=== PATIENT | female | born 1965 | race Caucasian/White ===

== ENCOUNTER 2024-11-18 11:08 | Inpatient (IN) ==
--- NOTE | 2024-10-25 13:24 | PAT Medication Instructions ---
Medication Instructions Date of Service October 25, 2024 Home Medications AJQ-kkndfwyxrbwjl-xnlrdhhl-potassium 520 mg-260 mg-32.5 mg oral packet 1 packet PO DAILY PRN Headache gabapentin 800 mg tablet 800 mg PO TID losartan 50 mg tablet 50 mg PO QAM tirzepatide (weight loss) 12.5 mg/0.5 mL subcutaneous pen injector (Zepbound) 12.5 mg subcut WK ASK your surgeon for instructions CNP-njodeacxxeuzd-hojmbkfg-potassium 520 mg-260 mg-32.5 mg oral packet 1 packet PO DAILY PRN Headache STOP 7 days prior to surgery tirzepatide (weight loss) 12.5 mg/0.5 mL subcutaneous pen injector (Zepbound) 12.5 mg subcut WK DO NOT take the morning of surgery losartan 50 mg tablet 50 mg PO QAM Take morning of surgery With a small sip of water, OTHERWISE NOTHING TO EAT OR DRINK AFTER MIDNIGHT: gabapentin 800 mg tablet 800 mg PO TID Other Notes If you have any questions please call us at [phone] or [phone] or [phone] or [phone]
--- NOTE | 2024-11-07 11:13 | Anesthesiology Consultation ---
Date of Service November 07, 2024 Assessment & Plan (1) Encounter for pre-operative examination: - Infectious disease screening: Per assessment on 11/07/24- Patient's had influenza 2/5 (resolved 10/24). Patient development or current infectious disease symptoms. Patient advised to contact surgeon/PAT if development in infectious- related symptoms prior to surgery. - Zepbound instructions: Patient informed by PAT to stop 7 days prior to surgery - voiced understanding. DOS 11/18. Advised last dose to be 11/06/24. - Patient concern: Significant post-op nausea with previous procedures/anesthesia. Chart flagged. - Patient acceptable risk for surgery pending surgeon-ordered PCP preop evaluation (Dr. Hanny Arce/[facility], appt 11/10). Chart Review Chart Review: Patient seen in Pre Admission Testing Teaching & Discussion Pre-Anesthesia Teaching/Discussion Notes: Instructed NPO after midnight before surgery,except medications with 15 cc of water. Medication instructions provided according to the PAT guidelines. History Surgery Operation Date: 11/18/24 11:55 Proposed Procedures p L4-L5 Decompression and Fusion, Spinal Cord Monitoring - Sahil Rawls, Height/Weight Height: 5 ft 5 in Weight: 101.2 kg Allergies Allergy/AdvReac Type Severity Reaction Status Date / Time azithromycin Allergy Severe Tachycardia, Verified 11/07/24 11:44 [From Zithromax Z-Roderick] heart racing naproxen [From Aleve] Allergy Severe Anaphylaxis Verified 10/25/24 10:08 NSAIDS (Non-Steroidal Allergy Severe Anaphylaxis Verified 11/07/24 11:44 Anti-Inflamma sumatriptan Allergy Severe Hives Verified 10/25/24 10:08 tramadol Allergy Severe Hives Verified 10/25/24 10:08 nickel Allergy Mild Rash Verified 10/25/24 10:26 Penicillins Allergy Mild Rash Verified 10/25/24 10:08 sulfamethoxazole AdvReac Mild Thrush Verified 10/25/24 10:08 [From Bactrim] trimethoprim [From Bactrim] AdvReac Mild Thrush Verified 10/25/24 10:08 Medications Home Medications Medication Instructions Recorded Confirmed Last Taken NDE-ywohzkyhxdsvq-jqofgmur-potassium 1 packet PO DAILY PRN Headache 10/25/24 10/25/24 Unknown 520 mg-260 mg-32.5 mg oral packet gabapentin 800 mg tablet 800 mg PO TID 10/25/24 10/25/24 Unknown losartan 50 mg tablet 50 mg PO QAM 10/25/24 10/25/24 Unknown tirzepatide (weight loss) 12.5 12.5 mg subcut WK 10/25/24 10/25/24 Unknown mg/0.5 mL subcutaneous pen injector (Zepbound) Past Medical History Medical History Acid reflux Arthritis Borderline hypertension Cardiac murmur "Since , has never been an issue" No murmur noted at PAT visit 11/07/24 Hx of blood clots (2017) LLE superficial clot- was on aspirin, no clots since Hx of migraines Obesity Reason for weekly Zepbound per patient Exercise / Class Metabolic Activity III < 4 Walking/Shop/Light housework Past Surgical History Surgical History History of esophagogastroduodenoscopy (EGD) Hx of bilateral cataract extraction (2023) Hx of colonoscopy Hx of gastric bypass (2004) Hx of knee surgery meniscus repair, cannot recall side Past Anesthesia History No Hx of Anesthesia Complications and No Family Hx of Anesthesia Complications History of PONV History of PONV (Nausea) and Hx of Motion Sickness Social History Smoking Status: Never smoker Do You Dip or Chew Tobacco: No Hx Alcohol Use: Yes alcohol intake frequency: holidays/special occasions only Hx Substance Use: No Review of Systems Patient denies chest pain, shortness of breath, fever, chills, cough, wheezing, palpitations. Physical Exam Vital Signs BP 121/66 P 88 TEMP 98.4 SP02 99%RA RESP 16 Physical Full cervical extension range of motion. Full TMJ range of motion. TMD 3 finger breaths Mallampati Score III Lungs: clear throughout to auscultation Cardiac: regular rate and rhythm, no murmurs noted Spine: normal Carotid arteries: negative bruit Extremities: no LE edema Lab Results Anesthesia Preop Results Results Anesthesia Widget: WBC 4.09 K/ul (4.8-10.8) L 11/07/24 Hgb 12.5 g/dl (12.0-16.0) 11/07/24 Hct 39.4 % (37.0-47.0) 11/07/24 Plt 269 K/uL (130-400) 11/07/24 Na 142 mmol/L (136-145) 11/07/24 K 3.9 mmol/L (3.5-5.1) 11/07/24 Cl 107 mmol/L (98-107) 11/07/24 CO2 30 mmol/L (21-32) 11/07/24 BUN 10 mg/dl (6-23) 11/07/24 Creat 0.70 mg/dl (0.6-1.2) 11/07/24 Glucose Level 84 mg/dl (70-99(Fasting)) 11/07/24 PT 11.1 Seconds (9.0-12.0) 11/07/24 PTT 26 Seconds (21-31) 11/07/24 INR 1.0 (0.9-1.1) 11/07/24 Urine Color Yellow 11/07/24 Urine Appearance Clear (Clear) 11/07/24 Urine pH 5.5 (4.5-7.5) 11/07/24 Urine Specific [place] 1.010 (1.000-1.030) 11/07/24 Urine Protein Negative (Negative) 11/07/24 Urine Glucose (UA) Negative (Negative) 11/07/24 Urine Ketones Negative (Negative) 11/07/24 Urine Blood Negative (Negative) 11/07/24 Urine Nitrite Negative (Negative) 11/07/24 Urine Bilirubin Negative (Negative) 11/07/24 Urine Urobilinogen Negative (Negative) 11/07/24 Urine Leukocyte Esterase Negative (Negative) 11/07/24 Blood Type A Positive 11/07/24 Antibody Screen NEGATIVE 11/07/24 Testing Electrocardiogram Date: 11/07/24 NSR with sinus arrhythmia at 84bpm. "Normal ECG" Chest X-Ray Date: 11/07/24 FINDINGS: Heart size and pulmonary vasculature are normal. No effusion or consolidation. IMPRESSION: No acute findings.
[2024-11-18] MEDS: LR 15ML/HR IV SCH (11:03)
[2024-11-18] MEDS: VANCOMYCIN HCL 1,500 MG in SODIUM CHLORIDE 0.9% 500 ML IV SCH (11:04)
[2024-11-18] MEDS: LR 60ML/HR IV SCH (11:04)
[2024-11-18] MEDS: GABAPENTIN 600 MG DOSE PO SCH (11:05)
[2024-11-18] MEDS: ACETAMINOPHEN 500 MG TAB PO SCH (11:05)
[2024-11-18] MEDS ORDERED: ATROPINE SULFATE 0.1 MG/ML 10ML SYR IV PRN (11:23)
[2024-11-18] MEDS ORDERED: ePHEDrine sulfate 50 MG/ML AMP IV PRN (11:23)
[2024-11-18] MEDS ORDERED: ONDANSETRON INJ 2 MG/ML 2 ML VIAL IV PRN (11:23)
[2024-11-18] MEDS ORDERED: fentaNYL citrate PF 100 MCG/2 ML VIAL ONE (11:34)
[2024-11-18] MEDS ORDERED: MIDAZOLAM HCL 1 MG/ML 2ML VIAL ONE (11:34)
[2024-11-18] MEDS ORDERED: LIDOCAINE 2% 2 ML VIAL/AMP(20MG/ML) INFIL ONE (11:35)
[2024-11-18] MEDS: SCOPOLAMINE 1 MG/72 HR TDSY PATCH TD ONE ×2 (11:35→16:34)
[2024-11-18] MEDS ORDERED: PROPOFOL IV EMULSION 10 MG/ML 20 ML VIAL IV ONE (11:36)
[2024-11-18] MEDS ORDERED: ROCURONIUM BROMIDE 10 MG/ML 5 ML VIAL IV ONE ×2 (11:36→14:03)
--- NOTE | 2024-11-18 11:48 | History & Physical Bridge Note ---
Date of Service November 18, 2024 History & Physical Bridge Note I have examined the patient, reviewed the History & Physical and in the interval since the performance of the History & Physical I have noted the following changes of clinical significance: no changes noted
--- NOTE | 2024-11-18 11:49 | History & Physical Report ---
Date of Service November 18, 2024 Assessment & Plan (1) Spondylolisthesis, lumbar region: Plan: Decompression and fusion L4-L5 History of Present Illness Chief Complaint: Back and bilateral leg pain Primary Care Provider: Judi Arce MD This is a 58-year-old female who presents for chronic persistent back and bilateral leg pain after failing course of nonoperative care is here for surgical invention. Allergies Allergy/AdvReac Type Severity Reaction Status Date / Time azithromycin Allergy Severe Tachycardia, Verified 11/18/24 11:10 [From Zithromax Z-Roderick] heart racing naproxen [From Aleve] Allergy Severe Anaphylaxis Verified 11/18/24 11:10 NSAIDS (Non-Steroidal Allergy Severe Anaphylaxis Verified 11/18/24 11:10 Anti-Inflamma sumatriptan Allergy Severe Hives Verified 11/18/24 11:10 tramadol Allergy Severe Hives Verified 11/18/24 11:10 nickel Allergy Mild Rash Verified 11/18/24 11:10 Penicillins Allergy Mild Rash Verified 11/18/24 11:10 sulfamethoxazole AdvReac Mild Thrush Verified 11/18/24 11:10 [From Bactrim] trimethoprim [From Bactrim] AdvReac Mild Thrush Verified 11/18/24 11:10 Home Medications Medication Instructions Recorded Confirmed Type KXF-bbqhxzqmhufin-nmzsjqhu-potassium 1 packet PO DAILY PRN Headache 10/25/24 10/25/24 History 520 mg-260 mg-32.5 mg oral packet gabapentin 800 mg tablet 800 mg PO TID 10/25/24 11/18/24 History losartan 50 mg tablet 50 mg PO QAM 10/25/24 11/18/24 History tirzepatide (weight loss) 12.5 12.5 mg subcut WK 10/25/24 11/18/24 History mg/0.5 mL subcutaneous pen injector (Zepbound) acetaminophen 500 mg capsule 1,000 mg PO Q6H PRN Pain 11/18/24 11/18/24 History Past Med/Surg History Problem List (Updated 11/18/24 @ 11:48 by Sahil Rawls DO) Spondylolisthesis, lumbar region Encounter for pre-operative examination Medical History Acid reflux Arthritis Borderline hypertension Cardiac murmur "Since , has never been an issue" No murmur noted at PAT visit 11/07/24 Hx of blood clots (2017) LLE superficial clot- was on aspirin, no clots since Hx of migraines Obesity Reason for weekly Zepbound per patient Surgical History History of esophagogastroduodenoscopy (EGD) Hx of bilateral cataract extraction (2023) Hx of colonoscopy Hx of gastric bypass (2004) Hx of knee surgery meniscus repair, cannot recall side Social History Smoking Status: Never smoker Second Hand Exposure: No; Do You Dip or Chew Tobacco: No; Tobacco Cessation Education Requested by Patient: No Hx Alcohol Use: Yes Hx Substance Use: No Preferred Language: Omani Communication Ability: Effective Marketing Development Specialist Required: No Beliefs That Will Affect Care: None Current Living Situation: Spouse Other Information That Helps Us Care for You: No Feels Safe at Home: Yes Safety Concerns: Feels Safe At This Time Assistive Devices: Glasses Physical Exam Physical Exam: Patient is alert and oriented Heart regular rhythm Lungs clear Results & Data Results & Data Vital Signs (Past 12 Hours) Vital Signs Temp Pulse Resp BP Pulse Ox O2 Del Method 11/18/24 11:14 36.6 C 75 18 146/94 H 99 Room Air
[2024-11-18] MEDS ORDERED: HYDROmorphone INJ 2 MG/ML SYR/VIAL ONE (12:40)
[2024-11-18] MEDS ORDERED: KETAMINE HCL 10MG/ML SYR ONE (12:40)
[2024-11-18] MEDS ORDERED: ONDANSETRON INJ 2 MG/ML 2 ML VIAL ONE (12:40)
[2024-11-18] MEDS ORDERED: DEXAMETHASONE SOD INJ 4 MG/ML VIAL ONE (12:40)
[2024-11-18] MEDS: BUPIVACAINE/EPINEPHRINE 0.25% 1:200,000 30 ML VIAL ONE (12:48)
[2024-11-18] MEDS: ceFAZolin 330 MG/ML 1 GM VIAL ONE (12:48)
[2024-11-18] MEDS ORDERED: METOCLOPRAMIDE HCL INJ 5 MG/ML 2 ML VIAL ONE ×2 (12:59→14:03)
[2024-11-18] MEDS ORDERED: PHENYLEPHRINE 100MCG/ML 5ML SYR ONE (13:00)
[2024-11-18] MEDS ORDERED: SUGAMMADEX SODIUM 200 MG/2 ML VIAL IV ONE (14:03)
[2024-11-18] MEDS: FLOSEAL HEMOSTATIC MATRIX 10ML TOP ONE (14:07)
--- NOTE | 2024-11-18 14:17 | Operative Report ---
Post Operative Report Pre & Post Diagnosis Operation Date: 11/18/24 11:55 Pre-Op Diagnosis: #1 lumbar spondylolisthesis with radiculopathy #2 lumbar spondylosis with radiculopathy #3 lumbar spinal stenosis Post-Op Diagnosis: Same I identified the patient and participated in the time-out.: Yes Procedure Operation Date: 11/18/24 11:55 Actual Procedures #1 lumbar decompression with bilateral medial facetectomies and foraminotomies L3-L4 L4-5 per #2 posterior spinal fusion L4-5 per #3 placed posterior instrumentation L4-5 #4 interbody fusion L4-L5. #5 placement Spira 15 x 26 mm x 2 at L4-5. #6 placement locally harvested morselized autograft the posterior gutters. #7 placement fuse collagen sponge combined with Koros in the posterior lateral gutters and os design interbody space. #8 placement of versa wrap of the exposed dura. Surgeon Sahil Rawls, DO Refuse Collector Supervisor Ryan Santos Estimated Blood Loss 200 Findings See Below The patient is 5 foot 4 weighing over 99 kg with a BMI in excess of 37. The patient's body habitus did contribute to significant technical difficulty with positioning exposure and the procedure itself. This had at least 50% increased operative time. Specimens None Indications This is a 58-year-old female presents publish diagnosis after failing course of nonoperative care is here for surgical invention. Description of Procedure Patient was met with identified informed consent obtained. Patient was then taken to the operative suite underwent patient placed in a prone position the [place] table top Wild frame. All bony promises well-padded eyes inspected to ensure no external pressure placed upon the. This point the lumbar spine was prepped and draped no sterile fashion. Sharp dissection with assistance of Bovie cautery performed down to and exposing the lamina and transverse processes of L4-L5 bilaterally. From caudal to cephalad fashion complete laminectomy of L4 was performed including bilateral medial facetectomies and foraminotomies addressing severe neural compression. This is followed by partial laminectomy of L3 with bilateral medial facetectomies to address all spinal stenosis. Pedicle screws and placement for L5 bilaterally with assistance of fluoroscopy in the process pasquale placed. By way of transforaminal approach on the right discectomy of L4-5 was performed endplates guarded to subcortical big bone and a 15 x 26 mm Spira cage filled with os design bone graft tapped in position. Then proceeded to the left transforaminal region at L4-5. Again discectomy performed. Endplates guided to subcortical and bone and a second 15 x 26 mm Spira cage filled with os design tapped in position. The rods then compressed locked in final position bilaterally. The transverse processes of L4-5 burred to subcortical bleeding bone. Infuse collagen sponge, with Koros and local autograft placed in the posterior lateral gutters. Versa wrap placed over the exposed dura. 15 round ODALIS drain inserted. The incision was then closed with 1 Vicryl the fascia 2-0 Vicryl subcutaneously and 4 Monocryl for final skin closure. Steri-Strips and sterile dressing placed. Patient waken taken to PACU in stable condition. Please note spinal cord monitoring was utilized at the procedure no changes noted. Ryan Brothers was present at the entire procedure and all the patient positioning complex portion of the surgery and final skin closure. I attest to the content of the Intraoperative Record and any orders documented therein. Any exceptions are noted below.
--- NOTE | 2024-11-18 14:28 | Fluoroscopy Report ---
FL lumbar spine 2-3V CLINICAL HISTORY: L4-L5 DECOMPRESSION AND FUSION COMPARISON STUDY: None FLUOROSCOPY TIME: 22 seconds FLUOROSCOPY IMAGES: 3 EXPOSURE DOSE: 21 mGy FINDINGS: Fluoroscopy was provided for L4-5 laminectomy and instrumented fusion. IMPRESSION: Intraoperative fluoroscopy. ACT 112: Negative or not required by law. Electronically signed by: Idris Mcknight M.D. 11/18/2024 2:26 PM
[2024-11-18] MEDS: fentaNYL citrate PF 100 MCG/2 ML VIAL IV PRN (14:41)
[2024-11-18] MEDS: HYDROmorphone INJ 1 MG/ML SYRINGE IV PRN (15:01)
--- NOTE | 2024-11-18 15:08 | Anesthesiology Progress Note ---
Date of Service November 18, 2024 Anesthesia Post Procedure Vital Signs Vital Signs: Temp Pulse Resp BP Pulse Ox O2 Del Method O2 Flow Rate 11/18/24 15:00 90 19 132/68 99 Nasal Cannula 2 11/18/24 14:50 77 16 116/61 96 Nasal Cannula 2 11/18/24 14:40 85 12 131/72 100 Nasal Cannula 2 11/18/24 14:30 36.1 C L 94 H 16 158/86 H 100 Oxymask 4 11/18/24 11:14 36.6 C 75 18 146/94 H 99 Room Air Pain Intensity Lower Back: Pain Intensity: 4 Transfer of Care Handoff Completed per policy Notes Mental Status: alert / awake / arousable and participated in evaluation Patient Amnestic to Procedure: Yes Nausea / Vomiting: adequately controlled Pain: adequately controlled Airway Patency, RR, SpO2: stable & adequate BP & HR: stable & adequate Hydration State: stable & adequate Anesthetic Complications: no major complications apparent and Pt Satisfied with anesthetic care
[2024-11-18] MEDS ORDERED: hydrOXYzine HCl 25 MG TAB PO PRN (16:24)
[2024-11-18] MEDS ORDERED: NALOXONE HCL 0.4 MG/1 ML VIAL/CARP IV PRN (16:24)
[2024-11-18] MEDS ORDERED: SOD PHOSPHATE/SOD BIPHOSPHATE ENEMA 132 ML BTL PR PRN (16:24)
[2024-11-18] MEDS ORDERED: LORazepam 0.5 MG TAB PO PRN (16:24)
[2024-11-18] MEDS ORDERED: FAMOTIDINE 20 MG TAB PO PRN (16:24)
[2024-11-18] MEDS ORDERED: MAGNESIUM HYDROXIDE SUSP 30 ML UDC PO PRN (16:24)
[2024-11-18] MEDS ORDERED: HYDROmorphone INJ 1 MG/ML SYRINGE IV PRN (16:24)
[2024-11-18] MEDS ORDERED: DO NOT ADMINISTER FLU VACCINE PRN (16:24)
[2024-11-18] MEDS ORDERED: DO NOT ADMINISTER PNEUMOCOCCAL VACCINE PRN (16:24)
[2024-11-18] MEDS ORDERED: ALUMINUM/MAGNESIUM SUSP 30 ML UDC PO PRN (16:24)
[2024-11-18] MEDS ORDERED: diphenhydrAMINE Capsule 25 MG CAP PO PRN (16:24)
[2024-11-18] MEDS ORDERED: [UNRECOGNIZED DRUG - OTHER] PO PRN (16:24)
[2024-11-18] MEDS ORDERED: LORazepam 2 MG/1 ML VIAL IV PRN (16:24)
[2024-11-18] MEDS ORDERED: METOCLOPRAMIDE HCL INJ 5 MG/ML 2 ML VIAL IV PRN (16:24)
[2024-11-18] MEDS ORDERED: bisacodyL 10 MG SUPP PR PRN (16:24)
[2024-11-18] MEDS ORDERED: HYDROmorphone INJ 0.5 MG/0.5 ML SYR IV PRN (16:24)
[2024-11-18] MEDS ORDERED: PROMETHAZINE 12.5 MG/50.5 ML BAG IV PRN (16:24)
--- NOTE | 2024-11-18 17:15 | Hospitalist Consultation ---
Date of Consultation November 18, 2024 Assessment & Plan (1) Spondylolisthesis, lumbar region: POD#0 L4-L5 decompression and fusion by Dr. Rawls Activity and wound care orders as per ortho Pain control with bowel regimen PT/OT Monitor H/H for acute blood loss anemia and transfuse blood products PRN EBL 200cc (2) HTN (hypertension): BPs currently well controlled in the 110s-120s Will hold VICE INVESTIGATOR losartan for now and reassess in the AM based on BP and labs DVT PROPHYLAXIS TEDs/SCDs as per spine Ortho Patient seen in collaboration with Dr. Dudley. Thank you for this consultation. We will follow the patient with you during their hospital stay. You can reach a [facility] via the [facility] role in [place] [facility]. Supervising Physician Co-Signing Physician Notes Attending Addendum: Case reviewed with the advanced practitioner. I have personally performed a history and physical examination on the patient. I have reviewed the advanced practitioner's documentation on the date of service referenced in note, and I agree with, and take responsibility for the plan of care. please refer to her notes for full details patient seen and examined, records reviewed by myself as well all labs, imaging noted and reviewed ASSESSMENT AND PLAN diagnoses and plan of care as per advanced practitioner's notes I spent a total of 20 minutes coordinating, documenting, and providing care for this patient, excluding time spent in the performance of separately billed services or time spent by another provider/QHP. Ari Dudley MD History of Present Illness Reason for Consultation: Postop medical management Requesting Physician: Dr. Rawls Attending Physician: Sahil Rawls, History of Present Illness 58-year-old female with PMH HTN, obesity, and other problems listed below who is s/p decompression and fusion L4-L5 today by Dr. Rawls. Postoperatively, the patient is doing well. She reports her pain is well-controlled. She denies any numbness, tingling, weakness to lower extremities. Reporting mild nausea that is improving. Denies abdominal pain. No chest pain or shortness of breath. Patient has voided since surgery. Allergies Allergy/AdvReac Type Severity Reaction Status Date / Time azithromycin Allergy Severe Tachycardia, Verified 11/18/24 11:10 [From Zithromax Z-Roderick] heart racing naproxen [From Aleve] Allergy Severe Anaphylaxis Verified 11/18/24 11:10 NSAIDS (Non-Steroidal Allergy Severe Anaphylaxis Verified 11/18/24 11:10 Anti-Inflamma sumatriptan Allergy Severe Hives Verified 11/18/24 11:10 tramadol Allergy Severe Hives Verified 11/18/24 11:10 nickel Allergy Mild Rash Verified 11/18/24 11:10 Penicillins Allergy Mild Rash Verified 11/18/24 11:10 sulfamethoxazole AdvReac Mild Thrush Verified 11/18/24 11:10 [From Bactrim] trimethoprim [From Bactrim] AdvReac Mild Thrush Verified 11/18/24 11:10 Home Medications Medication Instructions Recorded Confirmed Type CXC-endwstzrtftqn-luuawzcc-potassium 1 packet PO DAILY PRN Headache 10/25/24 10/25/24 History 520 mg-260 mg-32.5 mg oral packet gabapentin 800 mg tablet 800 mg PO TID 10/25/24 11/18/24 History losartan 50 mg tablet 50 mg PO QAM 10/25/24 11/18/24 History tirzepatide (weight loss) 12.5 12.5 mg subcut WK 10/25/24 11/18/24 History mg/0.5 mL subcutaneous pen injector (Zepbound) acetaminophen 500 mg capsule 1,000 mg PO Q6H PRN Pain 11/18/24 11/18/24 History Patient History Medical History (Updated 11/18/24 @ 17:12 by KYLIE Chavez) HTN (hypertension) Obesity Reason for weekly Zepbound per patient Hx of blood clots (2017) LLE superficial clot- was on aspirin, no clots since Cardiac murmur "Since , has never been an issue" No murmur noted at PAT visit 11/07/24 Arthritis Hx of migraines Borderline hypertension Acid reflux Surgical History Hx of bilateral cataract extraction (2023) History of esophagogastroduodenoscopy (EGD) Hx of colonoscopy Hx of gastric bypass (2004) Hx of knee surgery meniscus repair, cannot recall side Social History Smoking Status: Never smoker Second Hand Exposure: No; Do You Dip or Chew Tobacco: No; Tobacco Cessation Education Requested by Patient: No Hx Alcohol Use: Yes Hx Substance Use: No Preferred Language: Slovenian Communication Ability: Effective News Content Specialist Required: No Beliefs That Will Affect Care: None Current Living Situation: Spouse Other Information That Helps Us Care for You: No Feels Safe at Home: Yes Safety Concerns: Feels Safe At This Time Assistive Devices: Glasses Physical Exam Constitutional: WD/WN, vitals as above no acute distress Eyes: PERRL, conjunctivae normal, anicteric sclerae ENMT: external ear and nose normal, oropharynx normal Respiratory: normal respiratory effort, lungs clear to auscultation Cardiovascular: Rate/Rhythm: regular rate and regular rhythm Vessels: normal peripheral pulses Extremities: no edema Gastrointestinal (Abdomen): normal bowel sounds, soft, nontender, no hepatosplenomegaly Musculoskeletal: s/p back surgery, pedal pushes and pulls strong bilaterally Skin: no rashes, warm and dry Neurologic: PERRL, EOMI, accommodation nl, no face palsy, no dysarthria Psychiatric: A+Ox3, euthymic affect Results & Data Results & Data Vital Signs (Past 12 Hours) Vital Signs Temp Pulse Pulse Resp BP Pulse Ox O2 Del Method 11/18/24 16:28 36.5 C 92 H 18 121/80 99 Room Air 11/18/24 16:05 87 16 125/67 97 Nasal Cannula 11/18/24 15:50 90 18 117/72 98 Nasal Cannula 11/18/24 15:35 78 15 124/66 97 Nasal Cannula 11/18/24 15:20 36.5 C 85 17 122/78 95 Nasal Cannula 11/18/24 15:10 94 H 17 120/76 99 Nasal Cannula 11/18/24 15:00 90 19 132/68 99 Nasal Cannula 11/18/24 14:50 77 16 116/61 96 Nasal Cannula 11/18/24 14:40 85 12 131/72 100 Nasal Cannula 11/18/24 14:30 36.1 C L 94 H 16 158/86 H 100 Oxymask 11/18/24 11:14 36.6 C 75 18 146/94 H 99 Room Air O2 Flow Rate 11/18/24 16:28 11/18/24 16:05 2 11/18/24 15:50 2 11/18/24 15:35 2 11/18/24 15:20 2 11/18/24 15:10 2 11/18/24 15:00 2 11/18/24 14:50 2 11/18/24 14:40 2 11/18/24 14:30 4 11/18/24 11:14
[2024-11-18] MEDS: ONDANSETRON INJ 2 MG/ML 2 ML VIAL IV PRN (17:39)
[2024-11-18] MEDS: ACETAMINOPHEN 1,000 MG/100 ML VIAL IV PRN (17:39)
[2024-11-18] MEDS: CHECK SCOPOLAMINE PATCH PLACEMENT SCH (17:40)
[2024-11-18] MEDS: oxyCODONE HCL IR 5 MG TAB (IMMEDIATE RELEASE) PO PRN (19:50)
[2024-11-18] MEDS: GABAPENTIN 800 MG TAB PO SCH (19:50)
[2024-11-18] MEDS: CLINDAMYCIN/D5W 600 MG/50 ML BAG IV SCH (19:50)
[2024-11-18] MEDS: DOCUSATE SODIUM/SENNA 50/8.6MG TAB PO SCH (20:26)
[2024-11-19] MEDS: POLYETHYLENE (MIRALAX) 17 GM PACK PO SCH (05:31)
[2024-11-19 06:17] LABS: Basophils # (auto) 0.03 K/uL (0.00-0.20); Basophils % (auto) 0.3 %; Eosinophils # (auto) 0.03 K/uL (0.00-0.50); Eosinophils % (auto) 0.3 %; Hematocrit (blood only) 35.4 % (37.0-47.0); Hemoglobin 11.5 g/dl (12.0-16.0); Immature Granulocytes # (auto) 0.03 K/uL (0.01-0.20); Immature Granulocytes % (auto) 0.3 %; Lymphocytes # (auto) 1.33 K/uL (1.20-3.40); Lymphocytes % (auto) 11.8 %; Mean Corpuscular Hemoglobin 29.9 pg (25.0-34.0); Mean Corpuscular Hgb Conc 32.5 g/dL (32.0-36.0); Mean Corpuscular Volume 92.2 fL (80.0-100.0); Mean Platelet Volume 10.4 fL (9.4-12.4); Monocytes % (auto) 5.3 %; Neutrophils # (auto) 9.23 K/uL (1.40-6.50); Platelet Count 284 K/uL (130-400); RDW Coefficient of Variation 13.5 % (11.5-14.5); Red Blood Count 3.84 M/uL (4.20-5.40); White Blood Count 11.25 K/ul (4.8-10.8)
[2024-11-19 06:34] LABS: BUN Creatinine Ratio 11.8 (10-20); Calcium 9.1 mg/dl (8.6-10.3); Creatinine Clr Calc Pharmacy 95.8 ml/min; Potassium 3.8 mmol/L (3.5-5.1)
[2024-11-19] MEDS: ONDANSETRON 4 MG OD TAB PO PRN (07:37)
[2024-11-19] MEDS: dexAMETHasone 6 MG in SYRINGE 0 ML IV SCH (07:38)
--- NOTE | 2024-11-19 08:13 | Orthopedic Progress Note ---
Date of Service November 19, 2024 Assessment & Plan (1) Spondylolisthesis, lumbar region: Plan: At this time initiate physical therapy monitor ODALIS output over the discharge home the next few days. Admission and Anticipated Discharge Date Admission Date: November 18, 2024 Subjective Back pain controlled leg pain improved Physical Exam Physical Exam: Patient sitting up in bed at this time. She is comfortable. Good strength testing. Results & Data Vital Signs (Past 12 Hours) Vital Signs Temp Pulse Resp BP Pulse Ox O2 Del Method 11/19/24 07:31 36.8 C 108 H 18 122/65 98 Room Air 11/19/24 03:29 36.3 C L 99 H 16 115/71 96 Room Air 11/18/24 22:45 36.5 C 91 H 16 108/66 96 Room Air Queries Orthopedic Spine Obesity: Yes
[2024-11-19] MEDS: ACETAMINOPHEN 500 MG TAB PO PRN (09:16)
--- NOTE | 2024-11-19 12:22 | Hospitalist Progress Note ---
Date of Service November 19, 2024 Assessment & Plan (1) Spondylolisthesis, lumbar region: Plan Spondylolisthesis, lumbar region: POD#1 L4-L5 decompression and fusion by Dr. Rawls Activity and wound care orders as per ortho Pain control with bowel regimen PT/OT Monitor H/H for acute blood loss anemia and transfuse blood products PRN EBL 200cc Pt hemodynamically doing better. HTN (hypertension): c/w home meds, BP fairly under control. DVT PROPHYLAXIS: TEDs/SCDs as per spine Ortho Admission and Anticipated Discharge Date Admission Date: November 18, 2024 Subjective Patient was seen and examined at bedside. Patient was lying in bed, on room air, NAD, resting comfortably. Patient reports nausea earlier but has already improved, reports eating okay, has not moved bowel, is moving gas. Patient not able to comment on improvement in her radicular symptoms after the surgery. Physical Exam Physical Exam: Constitutional: WD/WN, vitals as a kimi no acute dis tress Eyes: PERRL, conjunctiva e normal, anicteri c sclerae ENMT: external ear and n ose normal, oropha rynx normal Respiratory: normal respiratory effort, lungs cesario ar to auscultation Cardiovascular: Rate/Rhythm: regul ar rate and regula r rhythm Vessels: normal peripheral pulses Extremiti es: no edema Gastrointestinal ( Abdomen): normal bowel sound s, soft, nontender , no hepatosplenom egaly Musculoskeletal: s/p back surgery, pedal pushes and pulls strong bilat erally ODALIS drain w/ minimal serosangu inous output Skin: no rashes, warm an d dry Neurologic: PERRL, EOMI, accom modation nl, no fa ce palsy, no dysar thria Psychiatric: A+Ox3, euthymic af fect Results & Data Results & Data Vital Signs (Past 12 Hours) Vital Signs Temp Pulse Resp BP Pulse Ox O2 Del Method 11/19/24 07:31 36.8 C 108 H 18 122/65 98 Room Air 11/19/24 03:29 36.3 C L 99 H 16 115/71 96 Room Air
[2024-11-20 05:46] LABS: Hematocrit (blood only) 29.6 % (37.0-47.0); Hemoglobin 9.5 g/dl (12.0-16.0); Mean Corpuscular Hemoglobin 29.9 pg (25.0-34.0); Mean Corpuscular Hgb Conc 32.1 g/dL (32.0-36.0); Mean Corpuscular Volume 93.1 fL (80.0-100.0); Mean Platelet Volume 9.8 fL (9.4-12.4); Platelet Count 184 K/uL (130-400); RDW Coefficient of Variation 13.8 % (11.5-14.5); Red Blood Count 3.18 M/uL (4.20-5.40); White Blood Count 6.32 K/ul (4.8-10.8)
[2024-11-20] MEDS: LOSARTAN POTASSIUM 50 MG TAB PO SCH (07:51)
--- NOTE | 2024-11-20 08:47 | Orthopedic Progress Note ---
Date of Service November 20, 2024 Assessment & Plan (1) Spondylolisthesis, lumbar region: Plan: Patient is stable postoperative #2. Recommend continue with ambulation and gait training. Will continue with her bowel regimen and as well as GI and DVT prophylaxis. At all likelihood we will get her home tomorrow. Admission and Anticipated Discharge Date Admission Date: November 18, 2024 Subjective Patient seen bedside in room 307. She states she is doing okay at this point. She has some back pain but her back feels more stable. She is not getting too much in way of leg pain. She has been up and ambulating with a walker. Her pain is well-controlled. She has not yet had a bowel movement and feels a bit bloated this morning. She denies any other numbness, tingling, or paresthesias. Physical Exam Physical Exam: On exam she is alert and oriented. Her ODALIS drain is in place and holding suction. She has had 60 cc of drainage and then 60 cc of drainage on the shift previous. Her dressing is clean dry and intact. Her strength and sensation are both intact her abdomen soft and nontender her calves are supple and nontender. Results & Data Vital Signs (Past 12 Hours) Vital Signs Temp Pulse Resp BP Pulse Ox O2 Del Method 11/20/24 06:58 36.9 C 93 H 18 101/67 95 Room Air 11/19/24 20:26 36.8 C 104 H 121/74 96 Room Air
--- NOTE | 2024-11-20 14:05 | Hospitalist Progress Note ---
Date of Service November 20, 2024 Assessment & Plan (1) Spondylolisthesis, lumbar region: Plan Spondylolisthesis, lumbar region: Acute blood loss anemia POD#1 L4-L5 decompression and fusion by Dr. Rawls Activity and wound care orders as per ortho Pain control with bowel regimen PT/OT Monitor H/H for acute blood loss anemia and transfuse blood products PRN-Hb dropped to 9.5 today preop Hb 12.5, no indication for blood transfusion now, continue to monitor. HnH in AM. EBL 200cc Pt hemodynamically doing better. HTN (hypertension): c/w home meds, BP fairly under control. DVT PROPHYLAXIS: TEDs/SCDs as per spine Ortho Admission and Anticipated Discharge Date Admission Date: November 18, 2024 Subjective Patient was seen and examined at bedside. Patient was sitting up in chair, on room air, NAD, resting comfortably. Pt reports improvement in rle radicular s/s, is now working w/ PT. Pt eating ok, moving gas, hasnot moved bowel. Physical Exam Physical Exam: Constitutional: WD/WN, vitals as a kimi no acute dis tress Eyes: PERRL, conjunctiva e normal, anicteri c sclerae ENMT: external ear and n ose normal, oropha rynx normal Respiratory: normal respiratory effort, lungs cesario ar to auscultation Cardiovascular: Rate/Rhythm: regul ar rate and regula r rhythm Vessels: normal peripheral pulses Extremiti es: no edema Gastrointestinal ( Abdomen): normal bowel sound s, soft, nontender , no hepatosplenom egaly Musculoskeletal: s/p back surgery, pedal pushes and pulls strong bilat erally ODALIS drain w/ minimal serosangu inous output Skin: no rashes, warm an d dry Neurologic: PERRL, EOMI, accom modation nl, no fa ce palsy, no dysar thria Psychiatric: A+Ox3, euthymic af fect Results & Data Results & Data Vital Signs (Past 12 Hours) Vital Signs Temp Pulse Resp BP Pulse Ox O2 Del Method 11/20/24 06:58 36.9 C 93 H 18 101/67 95 Room Air
[2024-11-21 06:13] LABS: Hematocrit (blood only) 29.2 % (37.0-47.0); Hemoglobin 9.3 g/dl (12.0-16.0)
[2024-11-21 07:18] VITALS: BP 115/76; PULSE 86; RESP 16; TEMP 97.9; O2SAT 99
--- NOTE | 2024-11-21 10:55 | Hospitalist Progress Note ---
Date of Service November 21, 2024 Assessment & Plan (1) Spondylolisthesis, lumbar region: Plan Spondylolisthesis, lumbar region: Acute blood loss anemia POD#2 L4-L5 decompression and fusion by Dr. Rawls Activity and wound care orders as per ortho Pain control with bowel regimen PT/OT Monitor H/H for acute blood loss anemia and transfuse blood products PRN-Hb dropped to 9.5 today preop Hb 12.5, no indication for blood transfusion now, continue to monitor. HnH in AM. EBL 200cc Pt hemodynamically doing better. HTN (hypertension): c/w home meds, BP fairly under control. DVT PROPHYLAXIS: TEDs/SCDs as per spine Ortho Admission and Anticipated Discharge Date Admission Date: November 18, 2024 Subjective Patient was seen and examined at bedside. Patient was ambulating in room, on room air, NAD. Pt reports improvement in rle radicular s/s. Pt eating ok, moving gas, has not moved bowel. No belly pain. Physical Exam Physical Exam: Constitutional: WD/WN, vitals as a kimi no acute dis tress Eyes: PERRL, conjunctiva e normal, anicteri c sclerae ENMT: external ear and n ose normal, oropha rynx normal Respiratory: normal respiratory effort, lungs cesario ar to auscultation Cardiovascular: Rate/Rhythm: regul ar rate and regula r rhythm Vessels: normal peripheral pulses Extremiti es: no edema Gastrointestinal ( Abdomen): normal bowel sound s, soft, nontender , no hepatosplenom egaly Musculoskeletal: s/p back surgery, pedal pushes and pulls strong bilat erally ODALIS drain w/ minimal serosangu inous output Skin: no rashes, warm an d dry Neurologic: PERRL, EOMI, accom modation nl, no fa ce palsy, no dysar thria Psychiatric: A+Ox3, euthymic af fect Results & Data Results & Data Vital Signs (Past 12 Hours) Vital Signs Temp Pulse Resp BP Pulse Ox O2 Del Method 11/21/24 10:05 115/76 11/21/24 07:17 36.6 C 86 16 115/76 99 Room Air
--- NOTE | 2024-11-21 13:25 | Discharge Summary ---
Date of Service November 21, 2024 Admission HPI Per Admitting Provider This is a 58-year-old female who presents for chronic persistent back and bilateral leg pain after failing course of nonoperative care is here for surgical invention. Principal Diagnosis Lumbar spondylosis with spondylolisthesis Discharge Data Allergies Allergy/AdvReac Type Severity Reaction Status Date / Time azithromycin Allergy Severe Tachycardia, Verified 11/18/24 11:10 [From Zithromax Z-Roderick] heart racing naproxen [From Aleve] Allergy Severe Anaphylaxis Verified 11/18/24 11:10 NSAIDS (Non-Steroidal Allergy Severe Anaphylaxis Verified 11/18/24 11:10 Anti-Inflamma sumatriptan Allergy Severe Hives Verified 11/18/24 11:10 tramadol Allergy Severe Hives Verified 11/18/24 11:10 nickel Allergy Mild Rash Verified 11/18/24 11:10 Penicillins Allergy Mild Rash Verified 11/18/24 11:10 sulfamethoxazole AdvReac Mild Thrush Verified 11/18/24 11:10 [From Bactrim] trimethoprim [From Bactrim] AdvReac Mild Thrush Verified 11/18/24 11:10 Consultations 11/18/24 16:24 Consult Hospitalist Routine Procedures Performed Operation Date: 11/18/24 11:55 Actual Procedures p L4-L5 Decompression and Fusion, Spinal Cord Monitoring(Not Applicable) - Sahil Rawls DO Ordered Studies 11/18/24 11:55 FL lumbar spine 2-3V Routine Hospital Course (1) Spondylolisthesis, lumbar region: Patient underwent lumbar decompression fusion tolerated as well as taken orthopedic for postoperative. Postop patient progressed appropriate. Marked improvement of her back and leg symptoms. ODALIS drain decreasing. Extra strength testing. Pain control. Subsidy discharged home. Discharge orders instructions from the chart for further review. Total Time Total Time Spent Total Time Spent (In Minutes): 20 minutes Discharge Plan Discharge Items Patient Disposition: Home - Self-Care Reason For Visit: Single Level Lumbosacral Spondylosis with Radiculo Discharge Diagnosis: Lumbar spondylolisthesis with radiculopathy Activity: As commented below Non-emergency contact: Primary Care Provider Call non-emergency contact if: you have any medication questions Follow-up/Referrals: Judi Arce MD [Primary Care Provider] - Diet: Regular Addtl Attending Provider Instructions: ACTIVITY RECOMMENDATIONS: SELF CARE INSTRUCTIONS AFTER THORACIC/LUMBAR FUSIONS 1. You may walk to your tolerance. It is good exercise for your legs and back. Expect some back and intermittent leg aches and pains. 2. You may perform "counter-top" level activities (make a sandwich, eri with a project, etc.). 3. No bending or lifting of more than 10 pounds or back twisting of any nature (roll like a log when turning in bed). 4. You may ride in a car for 20-30 minutes at a time. No driving until after your first visit with your doctor. 5. Frequent changes of position and restricting sitting to 30 minutes at a time will help limit the amount of back spasms and stiffness you may experience. 6. You may discontinue the use of ambulatory aids (cane, crutches, etc.) once your strength and confidence allow. 7. You may marine specialist the shower and let water strike your incision when you arrive home at least once daily. Do not take a tub bath, sit in a hot tub or go into a swimming pool until after your first recheck in the office. 8. You may resume previous diet. SPECIAL CARE INSTRUCTIONS: VERY IMPORTANT TO READ AND REVIEW A. Your surgical incision has been closed with a cosmetic suture under the skin that will dissolve in about 6 weeks. In 14 days, you can use a pair of clean scissors and cut the suture that is left outside of the skin at the ends of your incision. 1. The small skin tapes can be removed 7 days after surgery if they have not fallen off by that point. 2. You may keep the wound open to air as much as possible to promote healing after post-op day number 5 unless told otherwise by your doctor. 3. If you think the wound looks like it is becoming infected (redness or worsening drainage) and/or you are experiencing fever, chill or worsening back pain and muscle spasms, contact the office so that we may evaluate you as soon as possible. B. Complications are uncommon, but please contact us if you have any signs or symptoms of: 1. wound infection (fever higher than 102.5 degrees F, redness, separation of wound, drainage, or increasing pain from the incision) 2. blood clots in legs (pain, swelling, redness and warmth in legs) 3. urinary tract infection (fever higher than 102.5 degrees F, burning upon urination or increased frequency of urination) 4. nerve problems (inability to walk on your toes or heels, numbness, loss of bowel or bladder control) 5. any other symptoms that concern you C. Please call the office at if you have any concerns or questions about your operation or recovery. D. No smoking! Smoking drastically decreases the chance of a solid fusion. E. Do not take any anti-inflammatory medications (Indocin, Advil, Motrin, Aspirin, Naprosyn, etc.) as these may inhibit the chance of a solid fusion. Tylenol is okay to take for pain. MANAGING PAIN AFTER SPINAL SURGERY 1. Narcotic medication is intended for short-term use and will be provided for surgical pain. Surgical pain usually lasts for a period of 4-6 weeks. Narcotic medication includes Percocet, Vicodin, Darvocet, Tylenol #3 or Lortab. 2. Longer-term pain is more appropriately treated with non-narcotic medication such as Tylenol ES. 3. Muscle spasm is not appropriately treated with narcotics. Muscle relaxers such as Soma, Flexeril or Skelaxin can be used along with Tylenol ES. 4. Remember that we all live with some "aches and pains". This is not unusual or uncommon after an injury or as we get older. a. Back pain is expected and may include muscle spasms for 4 to 6 weeks after surgery. The pain should gradually improve. If the pain worsens for no apparent reason, please contact the office. b. Intermittent leg pain may also be experienced and should not be concerned about unless it worsens for no apparent reason. If so, please contact the office. 5. We will provide appropriate medication within the normal guidelines of their prescribed use. We will also be very cautious and aware of potential abuse and extended duration of patients' medication needs. a. Pain medications are for your comfort and to assist with sleep and rest so that the tissue can heal. They are not provided in order to return to normal activity and should not be used through the day. To do so or worsening pain at night can result from ongoing tissue damage and development of tolerance to the prescribed medicine. 6. Please allow 2-3 days to process refills. Prescriptions will not be mailed but must be picked up at the office. FOLLOW UP VISIT: Keep your scheduled follow-up appointment. Any questions, please call the office at . Pending Studies at Discharge: No Stand-Alone Forms: My [facility], Smoking Cessation Medications and DC Order Prescriptions: New oxycodone 5 mg tablet 5 mg PO Q6H PRN (Reason: pain) Qty: 30 0RF Continued losartan 50 mg Tablet 50 mg PO QAM gabapentin 800 mg Tablet 800 mg PO TID [id number] [id number] mg Packet 1 packet PO DAILY PRN (Reason: Headache) Zepbound 12.5 mg/0.5 mL Pen Injector 12.5 mg SUBCUT WK acetaminophen 500 mg Capsule 1,000 mg PO Q6H PRN (Reason: Pain) Discharge Orders: Discharge Order (Routine); Ordered 11/21/24 Ordered By: Sahil Rawls Admission Data Admit Date/Time: 11/18/24 14:20 Attending Provider: Sahil Rawls Admit Provider: Sahil Rawls Primary Care Provider: Judi Arce Other Providers: Sanam Jones Other Interventions: Discharge Summary Assessment (RN) Last Done: 11/21/24 10:05
== END 2024-11-21 11:13 | disposition home or self-care (01) | DRG 402 ==
LOC: ASU 11:08 → PACUINP 14:20 → 3E 16:22 → 3N 11-21 06:15